=== PATIENT | female | born 1990 | race Caucasian/White ===

== ENCOUNTER 2017-05-15 09:20 | Emergency (ER) | payer OTHER ==
[~2017-05-15] VITALS: Ht 160 cm; Wt 88.5 kg
[2017-05-15] MEDS ORDERED: ZOLOFT 50MG TAB50 MG PO (09:30)
--- NOTE | 2017-05-15 09:33 | Urgent Treatment Center Report ---
History of Present Issue Date/Time Seen by Provider 05/15/17926 Visit Reason Pt arrived: Presenting Problem: Location if Accident: Onset of symptoms date/time:/ or onset unknown for: Have you (or family members/close friends) recently traveled outside the [place]? If Yes, where/when: Have you had exposure to infectious disease within the past month? TB? Other? 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 She has taken Tylenol, Motrin, and Excedrin. She gets migraines somewhat frequently and this is no different than other headaches. She does have some nausea and photophobia. She states migraines are triggered by her menses and weather changes, both of which she is currently dealing with. ALLERGIES Coded Allergies: Penicillins (05/15/17) Sulfa (Sulfonamide Antibiotics) (05/15/17) bee pollen (05/15/17) cefdinir (05/15/17) Home Medications Reported Medications Sertraline Hcl (Zoloft 50MG) 25 MG PO DAILY History Medical History Surgical Hx Previous Surgery?N Review of Systems All Other Systems Reviewed and Negative Psychiatric/Neurological headache Physical Exam Vital Signs Vital Signs Date Time Temp Pulse Resp B/P Pulse O2 O2 Flow FiO2 Ox Delivery Rate 05/15 937 20 05/15 928 98.0 66 20 130/78 100 General Appearance normal appearance, no apparent distress Ear, Nose, Throat hearing grossly normal, normal ENT inspection Respiratory Status No: respiratory distress, trachea midline, chest symmetrical. Lung Sounds bilateral: normal breath sounds, lungs clear. Cardiovascular normal exam, regular rate/rhythm, no peripheral edema, no gallop, no JVD, no murmur, no rub Gastrointestinal normal bowel sounds, normal exam, non tender Neurologic alert, normal exam, oriented x 3 Mental status normal mood/affect Medical Decision Making LABS/Meds/Orders Pt receiving controlled substance in ED? No Results/Orders Current Medication Orders Sig/Atul Start time Last Medication Dose Route Stop Time Status Admin Ketorolac 60 MG ONCE ONE 05/15 945 DC 05/15 Tromethamine IM 05/15 Ketorolac 0 .STK-MED ONE 05/15 936 DC Tromethamine .ROUTE Departure Departure Time of Disposition 1002 Disposition DC Home or Self Care(routine) Clinical Impression Primary Impression: Migraine Qualifiers: Migraine type: without aura Status migrainosus presence: without status migrainosus Intractability: not intractable Qualified Code: G43.009 - Migraine without aura, not intractable, without status migrainosus Condition STABLE Patient Instructions DI for Migraine Discharge Counseling Counseled pt/family regarding diagnosis, medications/RX, home care, follow up needs Comments Patient improved after Toradol injection and returned to work. at 1000
[2017-05-15 10:03] VITALS: BP 130/78
--- OUTSIDE RECORDS SUMMARY | 2017-05-16 16:28 | External Medical Summary Rpt ---
Author Author [facility] Address Unknown Phone Purpose Continuity of Care Document - through 2016
--- OUTSIDE RECORDS SUMMARY | 2017-05-16 16:28 | External Medical Summary Rpt ---
Demographics Preferred Language Albanian Marital Status Unknown Nondenominational Affiliation Unknown Race Unknown Ethnic Group Unknown Author Author , [facility] WARE Address Unknown Phone Immunization No patient found.
--- OUTSIDE RECORDS SUMMARY | 2017-05-16 16:28 | External Medical Summary Rpt ---
Author Author [employer] Organization [employer] Address Unknown Phone Unavailable Purpose Continuity of Care Document - through 2016
--- OUTSIDE RECORDS SUMMARY | 2017-05-16 16:28 | External Medical Summary Rpt ---
Demographics Preferred Language Frisian Marital Status Unknown Evangelical Affiliation Unknown Race Unknown Ethnic Group Unknown Author Author , CHAZ WARE Address Unknown Phone Immunization No patient found.
--- OUTSIDE RECORDS SUMMARY | 2017-05-16 16:28 | External Medical Summary Rpt ---
Author Author [facility] Address Unknown Phone [email or web address] Purpose Continuity of Care Document - through 2016
== END 2017-05-15 10:03 | disposition home or self-care (01) ==
LOC: UTC 09:20
DX: G43.009 Migraine without aura, not intractable, without status migrainosus (principal)

== ENCOUNTER 2017-09-08 06:56 | Day surgery (SDC) | payer OTHER ==
[~2017-09-08 06:56] MED LIST: ZOLOFT 50MG TAB50 MG PO
--- NOTE | 2017-09-08 08:00 | Operative Note ---
Surgeon/Diagnoses Surgeon/Color Corrector(s) Date of procedure: 09/08/17 Surgeon: MD Arley Mcclain Diagnoses Pre-op diagnosis: Epigastric pain Gastroesophageal reflux Post-op diagnosis Same as preoperative diagnoses, with the addition of the following: Gastritis Sliding hiatal hernia Procedure Procedure Procedure: Esophagogastroduodenoscopy with biopsy Indications: COMPA SELLERS is a 27 year-old Female with a history of epigastric pain and reflux. Findings: Gastroesophageal junction at 36 cm Sliding hiatal hernia (relatively small) Moderate gastritis in the cardia and mild gastritis distally Procedure Description: After informed consent was obtained, the patient was taken to the endoscopy suite. IV sedation ensued after she was transferred to the LEFT lateral decubitus position. The gastroscope was advanced. The gastroesophageal junction was at 36 cm. The stomach was entered. Mild gastritis was noted distally. Retroflexion revealed moderate inflammation in the cardia and a fairly small sliding hiatal hernia. No ulceration or bleeding was seen. Gastric cardia biopsies were obtained. Antral biopsies were also obtained. The pylorus was intubated. The duodenal mucosa appeared relatively normal. The gastroscope was carefully removed and the patient was transferred to recovery. EBL (ml): 1 Anesthesia: IV sedation with 8 mg of Versed and 200 g of fentanyl Complications: No immediate Specimens: Antral biopsy Gastric cardia biopsy Disposition Disposition: Stable to recovery from where she will be discharged home. She will follow-up in one week. at 0800
[2017-09-08 14:52] VITALS: BP 140/73
== END 2017-09-08 08:42 | disposition home or self-care (01) ==
LOC: SDC 06:56
PROVIDERS: Surgery
PROC: 0DB78ZX Excision of Stomach, Pylorus, Via Natural or Artificial Opening Endoscopic, Diagnostic (ICD-10-PCS; 2017-09-08)
PROC: 0DB68ZX Excision of Stomach, Via Natural or Artificial Opening Endoscopic, Diagnostic (ICD-10-PCS; principal; 2017-09-08 07:30)
DX: K29.70 Gastritis, unspecified, without bleeding (principal); K44.9 Diaphragmatic hernia without obstruction or gangrene

== ENCOUNTER → 2017-09-20 | Outpatient (CLI) | payer OTHER ==
[2017-09-20 12:36] LABS: HEMOGLOBIN 13.3 g/dL (12.2-16.2); LYMPH # 2.1 K/mm3 (0.7-4.5); LYMPH % 19.8 % (10-50.0)
[2017-09-20 13:42] LABS: BUN 6 mg/dL (7-18)
[2017-09-20 13:43] LABS: GFR (ESTIMATED) 75 ML/MIN (59-)
== END ==
LOC: LAB 12:23
PROVIDERS: Surgery
DX: R93.2 Abnormal findings on diagnostic imaging of liver and biliary tract (principal); Z01.812 Encounter for preprocedural laboratory examination

== ENCOUNTER 2017-09-23 07:16 | Day surgery (SDC) | payer OTHER ==
--- NOTE | 2017-09-23 11:53 | Operative Note ---
Surgeon/Diagnoses Surgeon/Sawing And Assembly Supervisor(s) Date of procedure: 09/23/17 Surgeon: MD Arley Mcclain Diagnoses Pre-op diagnosis: Abnormal gallbladder ultrasound Post-op diagnosis Same as preoperative diagnoses, with the addition of the following: Chronic cholecystitis Cholesterolosis of gallbladder wall Liver nodule Procedure Procedure Procedure: Laparoscopic cholecystectomy Liver biopsy Indications: COMPA SELLERS is a 27 year-old Female with a history of upper abdominal pain and an abnormal gallbladder ultrasound. Findings: Thickening of pericholecystic tissue in and around the infundibulum Cholesterolosis of gallbladder wall Liver nodule just to the LEFT of gallbladder fossa (likely focal steatosis) Procedure Description: After informed consent was obtained, the patient was taken to the operating room and placed in the supine position. General anesthesia was induced and the patient's abdomen was prepped and draped in a sterile fashion. After infiltration with local anesthetic an infraumbilical incision was made. A Veress needle was placed in position. The abdomen was insufflated. A 5 mm optical trocar was placed in position. Under direct visualization, 2 additional 5 mm trocars were placed in the RIGHT upper quadrant. A 12 mm trocar was placed in the subxiphoid position. The gallbladder was elevated up and over the liver margin. The tissue around the cystic duct was carefully dissected. The tissue in and around the infundibulum was very thickened. Clips were placed proximally and the duct was transected at the infundibulum utilizing harmonic clayton. Harmonic clayton were then utilized to remove the gallbladder from the liver margin. Prior to complete removal of the gallbladder, a fairly small nodule just to the LEFT lateral margin of the gallbladder fossa was excised with harmonic clayton and removed as a single liver biopsy. This nodule had benign-appearing changes and was felt to be most likely focal steatosis. The gallbladder was placed in a retrieval bag and removed through the subxiphoid trocar site. The RIGHT upper quadrant was thoroughly irrigated. No active bleeding or bile leak was noted. The fascia at the subxiphoid trocar site was reapproximated utilizing the efra-close device. Pneumoperitoneum was released as the remaining trocars were removed. All wounds were irrigated and skin was closed with 4-0 Monocryl in a subcuticular fashion. Steri-Strips were applied and the patient's anesthetic agents were reversed. After extubation, the patient was transferred to recovery in stable condition. EBL (ml): 15 Anesthesia: GETA Complications: no immediate Specimens: Gallbladder and contents Liver biopsy Disposition Disposition: Stable recovery from where she will be discharged home. She will follow-up in one week. at 8520
--- NOTE | 2017-09-23 12:07 | Anesthesia Record ---
Anesthesia Record Part I Total IV fluids: 1200 EBL (ml): 20 Urine Output: 0 B/P: 122/66 % SaO2: 97 Pulse: 109 Resps: 18 Temp: 98.4 Patient is: Stable Stable to PACU at: 1202 at 1207
--- NOTE | 2017-09-23 12:08 | Anesthesia Record ---
Anesthesia Record Part II Discharge time: 1232 Destination: Same day surgery PACU nurse assessment review? Yes Patient is: Stable Anesthesia complications? No at 1201
[2017-09-23 15:09] VITALS: BP 129/83
== END 2017-09-23 13:15 | disposition home or self-care (01) ==
LOC: SDC 07:16
PROVIDERS: Surgery
PROC: 0FB04ZX Excision of Liver, Percutaneous Endoscopic Approach, Diagnostic (ICD-10-PCS; 2017-09-23)
PROC: 0FT44ZZ Resection of Gallbladder, Percutaneous Endoscopic Approach (ICD-10-PCS; principal; 2017-09-23 09:00)
DX: K81.1 Chronic cholecystitis (principal); D37.6 Neoplasm of uncertain behavior of liver, gallbladder and bile ducts
CPT/HCPCS: J0131; J2405; J2710; S0077